=== PATIENT | male | born 1975 | race Two or more races ===

== ENCOUNTER 2022-03-25 09:39 | Emergency (ER) | payer OTHER | END 2022-03-25 16:58 | disposition home or self-care (01) | LOC: ER 09:39 | DX: R10.84 Generalized abdominal pain (principal) ==

== ENCOUNTER 2022-05-13 06:55 | Day surgery (SDC) | payer OTHER ==
[2022-05-13] MEDS ORDERED: KETO10TA2 PO (09:54)
[2022-05-13] MEDS ORDERED: TYLENOL ARTHRI650 MG PO (09:54)
[2022-05-13] MEDS ORDERED: MIRALAX17 GM PO (09:54)
[2022-05-13] MEDS ORDERED: ULTRAM50 MG PO (09:54)
== END 2022-05-13 15:40 | disposition home or self-care (01) ==
LOC: CIR.AMB 06:55
PROVIDERS: ATTEND Surgery
DX: K40.90 Unilateral inguinal hernia, without obstruction or gangrene, not specified as recurrent (principal); Z20.822 Contact with and (suspected) exposure to COVID-19; I87.2 Venous insufficiency (chronic) (peripheral)